=== PATIENT | female | born 1960 | race American Indian/Alaskan Native ===

== ENCOUNTER 2018-11-19 12:35 | Emergency (ER) | payer SELFPAY ==
[2018-11-19 13:14] VITALS: BP 150/90
--- NOTE | 2018-11-19 13:23 | Event Note ---
ED Screening Note Date of service: 11/19/18 Time: 13:19 ED Screening Note: 58 y/o female comes in for chronic right knee pain. Last seen on 04/15/18. No new traumas. Has not taking anything for pain. This initial assessment/diagnostic orders/clinical plan/treatment(s) is/are subject to change based on patients health status, clinical progression and re- assessment by fellow clinical providers in the ED. Further treatment and workup at subsequent clinical providers discretion. Patient/guardian urged not to elope from the ED as their condition may be serious if not clinically assessed and managed. Initial orders include:
--- NOTE | 2018-11-19 13:53 | XRay Report ---
RIGHT KNEE, 3 views: History: Right knee pain. Osteopenia is evident. Mild retropatellar spurring and mild medial compartment joint space narrowing are identified. No evidence for fracture or, bone lesion or large joint effusion. IMPRESSION: Osteopenia. Mild osteoarthritis.
[2018-11-19] MEDS ORDERED: TORADOL IM ONE (14:48)
--- NOTE | 2018-11-19 14:52 | Emergency Department Report ---
ED Back Pain/Injury HPI - General Chief Complaint: Extremity Injury, Lower Stated Complaint: LT KNEE PAIN Time Seen by Provider: 11/19/18 14:42 Source: patient Limitations: No Limitations - History of Present Illness Initial Comments: Patient is a 58-year-old female comes to the ER today complaining of right knee pain. She denies any injury. She states it's been hurting off and on for a couple years. She has not seen her doctor. She has not taken anything for it. She denies falls trauma or other injury. Patient denies previous medical history and is not on any medications at this time. - Related Data Previous Rx's Medication Instructions Recorded Last Taken Type Ibuprofen [Motrin] 800 mg PO Q8HR PRN #25 tablet 11/19/18 Unknown Rx Allergies Allergy/AdvReac Type Severity Reaction Status Date / Time No Known Allergies Allergy Unverified 11/19/18 12:37 ED Review of Systems ROS: Stated complaint: LT KNEE PAIN Other details as noted in HPI Comment: All other systems reviewed and negative ED Past Medical Hx - Past Medical History Medical history: no medical history ED Back Pain Physical Exam - Exam General: Vital signs noted. No distress. Alert and acting appropriately. thigh wnl ankle wnl dp plus 2 no effusion no cyst no pain over joint lines Back/Abdomen: No Abdominal Tenderness, No Perithoracic Tenderness, No Perilumbar Tenderness, No Sacroiliac Tenderness, No Flank Tenderness, No Straight Leg Raise Pain Neuro: Yes Normal Sensation, Yes Normal DTR's, Yes Normal Gait, No Motor Weakness ED Course Vital Signs 11/19/18 13:13 Temperature 98.4 F Pulse Rate 79 Respiratory 16 Rate Blood Pressure 150/90 O2 Sat by Pulse 100 Oximetry Ed Back Pain Tests - Tests Tests: Abnormal X Rays (oa) ED Medical Decision Making - Radiology Data Radiology results: report reviewed, image reviewed - Medical Decision Making xray with OA medicated with toradol dc home with pcp follow up ambulatory on dc Vital Signs 11/19/18 13:13 Temperature 98.4 F Pulse Rate 79 Respiratory 16 Rate Blood Pressure 150/90 O2 Sat by Pulse 100 Oximetry Critical care attestation.: If time is entered above; I have spent that time in minutes in the direct care of this critically ill patient, excluding procedure time. ED Disposition Clinical Impression: Arthritis, Knee pain Disposition: DC- TO HOME OR SELFCARE Is pt being admited?: No Does the pt Need Aspirin: No Condition: Stable Instructions: Osteoarthritis (ED) Additional Instructions: DIET TOLERATED MEDS ORDERED TODAY IN ER FOLLOW INSTRUCTIONS ON THE BOTTLE FOLLOW UP PCP WITHIN 48 HOURS TO ENSURE YOU ARE GETTING BETTER ACTIVITY TOLERATED MOTRIN OR TYLENOL FOR PAIN OR FEVER RETURN TO THE ER FOR WORSENING SYMPTOMS NOT RELIEVED BY YOUR MEDICATIONS. Referrals: DARIAN GARZA MD [Primary Care Provider] - 3-5 Days JENIFFER ERICKSON MD [Staff Physician] - 3-5 Days Time of Disposition: 14:51
== END 2018-11-19 15:05 | disposition home or self-care (01) ==
LOC: ED 12:35
DX: M13.862 Other specified arthritis, left knee (principal)
CPT/HCPCS: 73562; 96372; 99283; J1885